=== PATIENT | female | born 1985 | race American Indian/Alaskan Native ===

== ENCOUNTER 2016-10-20 18:06 | Emergency (ER) | payer OTHER ==
[2016-10-20 19:47] LABS: Bilirubin,Urine NEG (Negative); Blood,Urine NEG (Negative); Ketones,Urine NEG (Negative); Leukocyte Esterase,Urine TR (Negative); Mucus,Urine 1+ /HPF; Nitrite,Urine NEG (Negative); Protein,Urine <15 mg/dL mg/dL (Negative); Urobilinogen,Urine < 2.0 mg/dL (<2.0); WBC,Urine < 1.0 /HPF (0.0-6.0)
--- NOTE | 2016-10-20 20:44 | XRay Report ---
FINAL REPORT EXAM: XR HAND 3 RT HISTORY: RT HAND INJURY TECHNIQUE: Right hand three views 3 images PRIORS: None. FINDINGS: Bone mineralization appears within normal limits. There is fracture of the distal 5th metacarpal with palmar angulation. Soft tissue swelling is seen adjacent to the 5th metacarpal. IMPRESSION: 1. Traumatic angulated distal 5th metacarpal fracture.
[2016-10-20] MEDS ORDERED: MOTRIN PO ONE (21:55)
[2016-10-20] MEDS ORDERED: NORCO 5/325 PO ONE (21:55)
--- NOTE | 2016-10-20 22:07 | Emergency Department Report ---
Upper Extremity - HPI Chief Complaint: Extremity Injury, Upper Stated Complaint: INJURY TO RIGHT HAND Time Seen by Provider: 10/20/16 21:37 Upper Extremity: Right Hand Occurred When: Today Mechanism: Hit with Object Symptoms: Yes Pain with Movement, Yes Limited Range of Movement, Yes Swelling, Yes Bruising/Ecchymosis, No Deformity, No Numbness, No Weakness, No Laceration or Abrasion Other History: Patient comes into the ER today with complaints of right hand pain after she was trying to get a can of beans out of the pantry when somehow the can of beans fell and landed on her right hand. Patient denies any other complaints. ED Review of Systems ROS: Stated complaint: INJURY TO RIGHT HAND Other details as noted in HPI Constitutional: denies: chills, fever Eyes: denies: eye pain, eye discharge, vision change ENT: denies: ear pain, throat pain Respiratory: denies: cough, shortness of breath, wheezing Cardiovascular: denies: chest pain, palpitations Endocrine: no symptoms reported Gastrointestinal: denies: abdominal pain, nausea, diarrhea Genitourinary: denies: urgency, dysuria, discharge Musculoskeletal: joint swelling, arthralgia. denies: back pain Skin: denies: rash, lesions Neurological: denies: headache, weakness, paresthesias Psychiatric: denies: anxiety, depression Hematological/Lymphatic: denies: easy bleeding, easy bruising ED Past Medical Hx - Past Medical History Hx Asthma: Yes - Social History Smoking Status: Current Every Day Smoker - Medications Home Medications: Home Medications Medication Instructions Recorded Confirmed Last Taken Type HYDROcodone/APAP 5-325 [Fowler 1 each PO Q4HR PRN #18 tablet 10/20/16 Unknown Rx 5/325] Naproxen [Naprosyn TAB] 500 mg PO BID #20 tablet 10/20/16 Unknown Rx Upper Extremity Exam - Exam General: Vital signs noted. No distress. Alert and acting appropriately. Head and Torso: No HEENT Abnormality, No Neck Tenderness, No Chest/Lungs Abnormality, No Abdominal Tenderness, No Back Tenderness Shoulder Exam: Yes Normal Range of Motion in Shoulder, No Shoulder Tenderness, No Clavicle Tenderness, No Shoulder Deformity, No AC Joint Tenderness Arm Exam: No Arm/Humerus Tenderness, No Arm Deformity Elbow: No Elbow Tenderness, No Normal Range of Motion in Elbow, No Elbow Deformity Forearm: No Forearm Tenderness, No Forearm Deformity, No Pain with Pronation, No Pain with Supination Wrist: Yes Normal ROM in Wrist, No Wrist Tenderness, No Wrist Deformity, No Snuffbox Tenderness, No Pain with Axial Thumb Compression Hand: Yes Hand Tenderness (right posterior and palmar medial hand over the fourth and fifth metacarpals), Yes Digit Tenderness (right fourth and fifth fingers), No Hand Deformity, No Normal ROM in Digit(s) (Limited range of motion of right fourth and fifth fingers), No Digit(s) Deformity, No Tendon Dysfunction CMS Exam: Yes Normal Distal Pulses, Yes Normal Capillary Refill, Yes Normal Distal Sensation, No Broken Skin ED Course Vital Signs 10/20/16 18:30 Temperature 98.9 F Pulse Rate 93 H Respiratory 16 Rate Blood Pressure 126/77 O2 Sat by Pulse 100 Oximetry ED Medical Decision Making - Lab Data Lab Results 10/20/16 Range/Units 18:00 Urine Color Yellow (Yellow) Urine Turbidity Clear (Clear) Urine pH 6.0 (5.0-7.0) Ur Specific [place] 1.021 (1.003-1.030) Urine Protein <15 mg/dl (Negative) mg/dL Urine Glucose (UA) Neg (Negative) mg/dL Urine Ketones Neg (Negative) mg/dL Urine Blood Neg (Negative) Urine Nitrite Neg (Negative) Ur Reducing Substances Not Reportable Urine Bilirubin Neg (Negative) Urine Ictotest Not Reportable Urine Urobilinogen < 2.0 (<2.0) mg/dL Ur Leukocyte Esterase Tr (Negative) Urine WBC (Auto) < 1.0 (0.0-6.0) /HPF Urine RBC (Auto) 6.0 (0.0-6.0) /HPF U Epithel Cells (Auto) 2.0 (0-13.0) /HPF Urine Mucus 1+ /HPF Urine HCG, Qual Negative (Negative) - Radiology Data Radiology results: report reviewed Fracture of right distal fifth metacarpal - Medical Decision Making Patient is nontoxic and hemodynamically stable. X-rays reviewed by myself revealing good alignment of fracture distally to proximal bone. Patient placed in a ulnar gutter/boxer's splint in the ER. I will prescribe patient some medications for symptomatic relief as well as for the inflammation and refer her to orthopedics for further evaluation and casting. Patient is stable for discharge and is agreement with treatment plan. Critical care attestation.: If time is entered above; I have spent that time in minutes in the direct care of this critically ill patient, excluding procedure time. ED Disposition Clinical Impression: Fracture of fifth metacarpal bone of right hand Disposition: DISCHARGED TO HOME OR SELFCARE Is pt being admited?: No Does the pt Need Aspirin: No Condition: Good Instructions: Hand Fracture (ED) Prescriptions: HYDROcodone/APAP 5-325 [Fowler 5/325] 1 each PO Q4HR PRN #18 tablet PRN Reason: Pain Naproxen [Naprosyn TAB] 500 mg PO BID #20 tablet Referrals: PRIMARY CAREMD [Primary Care Provider] - 3-5 Days ROBERT GAN MD [Staff Physician] - 3-5 Days Forms: Work/School Release Form(ED) Time of Disposition: 22:11
[2016-10-21 05:34] VITALS: BP 113/95
== END 2016-10-20 22:40 | disposition home or self-care (01) ==
LOC: ED 18:06
DX: S62.396A Other fracture of fifth metacarpal bone, right hand, initial encounter for closed fracture (principal); J45.909 Unspecified asthma, uncomplicated; F17.200 Nicotine dependence, unspecified, uncomplicated; W20.8XXA Other cause of strike by thrown, projected or falling object, initial encounter; Y93.89 Activity, other specified; Y99.8 Other external cause status; Y92.89 Other specified places as the place of occurrence of the external cause
CPT/HCPCS: 81001; 81025